=== PATIENT | female | born 1985 | race Caucasian/White ===

== ENCOUNTER 2017-07-31 12:08 | Emergency (ER) | payer SELFPAY ==
[2017-07-31 12:30] VITALS: TEMP 98.6
--- NOTE | 2017-07-31 13:20 | CPEKG ---
Heart Rate: 92 RR Interval: 652 P-R Interval: 164 QRSD Interval: 86 QT Interval: 356 QTC Interval: 441 P [place]: 72 QRS [place]: 64 T Wave [place]: 66 EKG Severity - NORMAL ECG - EKG Impression: SINUS RHYTHM Electronically Signed By: Tameka Chowdhury 31-Jul-2017 21:08:41
[2017-07-31] MEDS ORDERED: ASPIRIN 81 MG CHEWABLE TAB PO ONE (13:32)
[2017-07-31] MEDS ORDERED: NS 500 ML IV ONE (13:32)
--- NOTE | 2017-07-31 13:35 | EDPHY ---
H & P Time Seen by Provider: 07/31/17 13:22 HPI/ROS: CHIEF COMPLAINT: Left leg pain, chest pain HISTORY OF PRESENT ILLNESS: Patient is a 31-year-old female who presents emergency department with multiple complaints. Patient traveled from [place] 5 days ago. She is on a 10 weak all day [place] the [place] Last evening she developed some mild chest pain. It is intermittent. Patient also has left leg pain. This initially started in the left calf and now moved to the left thigh. She has no leg swelling. Patient denies shortness of breath. No fevers or chills. No cough. No previous clots or family clotting history. REVIEW OF SYSTEMS: My complete review of systems is negative except as mentioned in the HPI. Past Medical/Surgical History: Denies Past surgical history: Denies Smoking Status: Never smoked Physical Exam: Vitals noted. Heart rate 89. O2 saturation 96% GENERAL: Well-appearing, in no acute distress, alert. HEENT: Eyes normal to inspection, normal pharynx, no signs of dehydration. NECK: No thyromegaly, no lymphadenopathy, supple. RESPIRATORY: Clear to auscultation bilaterally, no rales, rhonchi or wheezing. CVS: Regular rate and rhythm, no rubs, murmurs, or gallops. ABDOMEN: Soft, nontender, nondistended, no organomegaly. BACK: Normal to inspection, no CVA tenderness. SKIN: Normal color, no rash, warm, dry. No pallor. EXTREMITIES: No pedal edema, no calf tenderness, no Homans sign or cords, no joint swelling. Normal. NEURO/PSYCH: Alert and oriented x3, normal mood and affect, normal motor sensory exam. Constitutional: Initial Vital Signs Temperature (C) 37 C 07/31/17 12:26 Heart Rate 89 07/31/17 12:26 Respiratory Rate 18 07/31/17 12:26 Blood Pressure 111/79 07/31/17 12:26 O2 Sat (%) 96 07/31/17 12:26 O2 Delivery Mode Room Air Allergies/Adverse Reactions: No Known Allergies Allergy (Unverified 07/31/17 12:26) Home Medications: Medication Instructions Recorded NK [No Known Home Meds] 07/31/17 Medical Decision Making - Diagnostics Imaging Results: Imaging Impressions Chest X-Ray 07/31/17 13:32 Impression: Normal chest x-ray. Extremity Venous Study 07/31/17 13:33 Impression: No deep venous thrombosis in the left lower extremity. Findings discussed with Tameka Chowdhury M.D. at 14:29 hour, 07/31/2017. ED Course/Re-evaluation: In the emergency department I discussed possible etiologies with the patient. I answered all her questions. An IV was placed. Laboratory studies, chest x- ray and left lower extremity ultrasound were ordered. EKG shows normal sinus rhythm, normal rate, normal axis, normal intervals. There are no ST or T-wave abnormalities. EKG is normal as interpreted by me. CBC and chemistry were normal. Troponin was negative. D-dimer negative at the 0.27. negative. Ultrasound of the lower extremity: Please refer the dictated report. No DVT noted. Chest x-ray: No acute disease noted. I discussed the results with the patient. I answered all her questions. She was given warnings prior to leaving. She will return with worsening symptoms. Differential Diagnosis: My differential includes but is not limited to DVT, pulmonary embolus, bronchitis, pneumonia, viral illness - Data Points Laboratory Results: Laboratory Results 07/31/17 13:24 07/31/17 13:24 07/31/17 07/31/17 07/31/17 13:24 13:24 13:24 WBC RBC Hgb Hct MCV MCH MCHC RDW Plt Count MPV Neut % (Auto) Lymph % (Auto) [place] % (Auto) Eos % (Auto) Baso % (Auto) Nucleat RBC Rel Count Absolute Neuts (auto) Absolute Lymphs (auto) Absolute Monos (auto) Absolute Eos (auto) Absolute Basos (auto) Absolute Nucleated RBC Immature Gran % Immature Gran # D-Dimer < 0.27 ug/mLFEU ug/mLFEU (0.00-0.50) Sodium 139 mEq/L mEq/L (135-145) Potassium 3.9 mEq/L mEq/L (3.5-5.2) Chloride 103 mEq/L mEq/L (97-110) Carbon Dioxide 26 mEq/l mEq/l (22-31) Anion Gap 10 mEq/L mEq/L (8-16) BUN 13 mg/dL mg/dL (7-23) Creatinine 0.6 mg/dL mg/dL (0.6-1.0) Estimated GFR > 60 Glucose 83 mg/dL mg/dL (70-100) Calcium 9.3 mg/dL mg/dL (8.5-10.4) Troponin I < 0.012 ng/mL ng/mL (0.000-0.034) Beta HCG, Qual NEGATIVE 07/31/17 13:24 WBC 6.93 10^3/uL 10^3/uL (3.80-9.50) RBC 4.20 10^6/uL 10^6/uL (4.18-5.33) Hgb 12.6 g/dL g/dL (12.6-16.3) Hct 38.6 % % (38.0-47.0) MCV 91.9 fL fL (81.5-99.8) MCH 30.0 pg pg (27.9-34.1) MCHC 32.6 g/dL g/dL (32.4-36.7) RDW 12.3 % % (11.5-15.2) Plt Count 245 10^3/uL 10^3/uL (150-400) MPV 9.7 fL fL (8.7-11.7) Neut % (Auto) 58.2 % % (39.3-74.2) Lymph % (Auto) 31.3 % % (15.0-45.0) [place] % (Auto) 8.2 % % (4.5-13.0) Eos % (Auto) 1.6 % % (0.6-7.6) Baso % (Auto) 0.6 % % (0.3-1.7) Nucleat RBC Rel Count 0.0 % % (0.0-0.2) Absolute Neuts (auto) 4.03 10^3/uL 10^3/uL (1.70-6.50) Absolute Lymphs (auto) 2.17 10^3/uL 10^3/uL (1.00-3.00) Absolute Monos (auto) 0.57 10^3/uL 10^3/uL (0.30-0.80) Absolute Eos (auto) 0.11 10^3/uL 10^3/uL (0.03-0.40) Absolute Basos (auto) 0.04 10^3/uL 10^3/uL (0.02-0.10) Absolute Nucleated RBC 0.00 10^3/uL 10^3/uL (0-0.01) Immature Gran % 0.1 % % (0.0-1.1) Immature Gran # 0.01 10^3/uL 10^3/uL (0.00-0.10) D-Dimer Sodium Potassium Chloride Carbon Dioxide Anion Gap BUN Creatinine Estimated GFR Glucose Calcium Troponin I Beta HCG, Qual Medications Given: Discontinued Medications Aspirin (Aspirin) 324 mg PO EDNOW ONE Stop: 07/31/17 13:33 Last Admin: 07/31/17 13:41 Dose: 324 mg Sodium Chloride (Ns) 500 mls @ 1,000 mls/hr IV EDNOW ONE PRN Reason: Protocol Stop: 07/31/17 14:01 Last Admin: 07/31/17 13:41 Dose: 500 mls Departure - Departure Disposition: Home, Routine, Self-Care Clinical Impression: Left leg pain Chest pain Qualifiers: Chest pain type: unspecified Qualified Code(s): R07.9 - Chest pain, unspecified Condition: Good Instructions: Leg Pain (ED), Chest Pain (ED) Additional Instructions: Your ultrasound was negative. If you have increasing pain, shortness of breath or any other concerns return to the emergency department. Referrals: Malik Olivier [Doctor of Osteopathy] - 2-3 days, if not improved
[2017-07-31 13:38] LABS: PLATELET COUNT 245 10^3/uL (150-400)
[2017-07-31 13:45] VITALS: BP 125/74; PULSE 74; RESP 16; O2SAT 98
== END 2017-07-31 15:33 | disposition home or self-care (01) ==
DX: R07.9 Chest pain, unspecified (principal); M79.605 Pain in left leg; E86.9 Volume depletion, unspecified